=== PATIENT | female | born 1960 | race Caucasian/White ===

== ENCOUNTER 2017-04-09 18:10 | Inpatient (IN) | payer OTHER ==
[~2017-04-09] VITALS: Ht 165.1 cm; Wt 55.8 kg
[~2017-04-09 18:10] MED LIST: PROP10TA10 PO; SPIR50TA PO
[2017-04-09] MEDS ORDERED: ADENOSINE 6 MG/2 ML VIAL ONE (18:18)
--- NOTE | 2017-04-09 18:20 | NUR ---
PT BIBRA 88 FROM HOME C/O SOB AND DKEPNHPHUHT=[id number]. NOTED JAUNDICE. IV ACCESS INFILTRATED STAFF NURSE. MD AT BS FOR EVAL. SAFETY AND COMFORT MEASURES PROVIDED. WILL MONITOR.
[2017-04-09] MEDS ORDERED: DILTIAZEM HCL 25 MG IV ONE ×3 (18:31→21:04)
--- NOTE | 2017-04-09 18:35 | NUR ---
IV ACCESS STARTED. BLOOD DRAWN FOR LABS.
--- NOTE | 2017-04-09 18:40 | NUR ---
PT MEDICATED ORDERED. RT PRESENT AT BS. MD AT BS.
[2017-04-09 18:44] LABS: CALCIUM, SERUM 8.2 mg/dL (8.5-10.1); CREATININE 0.6 mg/dL (0.6-1.3); POTASSIUM 3.3 mmol/L (3.5-5.1)
[2017-04-09 18:56] LABS: ALBUMIN 2.1 g/dL (3.4-5.0); BILIRUBIN,DIRECT 7.6 mg/dL (0.0-0.2); BILIRUBIN,TOTAL 12.1 mg/dL (0.2-1.0); TOTAL PROTEIN, SERUM 7.2 g/dL (6.4-8.2)
[2017-04-09 18:57] LABS: TROPONIN I 0.057 ng/mL (0.00-0.056)
[2017-04-09] MEDS ORDERED: DILTIAZEM HCL 25 MG IV IV ONE ×2 (19:00→21:00)
[2017-04-09] MEDS ORDERED: ADENOSINE 6 MG/2 ML VIAL IVP ONE (19:00)
--- NOTE | 2017-04-09 19:00 | NUR ---
MADE AWARE OF CURRENT HEART RATE STILL AT 128-130S. RECEIOVED VERBAL ORDERS FROM DR. RICHARDSON FOR CARDIZEM 10MG SLOW IVP. ORDERS CARRIED OUT.
[2017-04-09 19:06] LABS: THYROID STIMULATING HORMONE 1.603 uIU/mL (0.358-3.74)
[2017-04-09 19:08] LABS: INR 2.01 (0.87-1.13)
[2017-04-09 19:36] LABS: BASOPHILS % (AUTO) 0.1 % (0.0-2.0); HEMATOCRIT 32 % (33-45); HEMOGLOBIN 11.1 g/dL (11.5-14.8); LYMPHOCYTES # (AUTO) 0.4 /CMM (0.8-4.8); LYMPHOCYTES % (AUTO) 9.6 % (20.0-44.0); MEAN CORPUSCULAR HEMOGLOBIN 38 PG (26.0-33.0); MEAN CORPUSCULAR HGB CONC 35 g/dl (31.0-36.0); MEAN CORPUSCULAR VOLUME 110 fL (82-100); MONOCYTES # (AUTO) 0.3 /CMM (0.1-1.30); NEUTROPHILS # (AUTO) 3.1 /CMM (1.8-8.9); NEUTROPHILS % (AUTO) 82.3 % (43.0-81.0); RDW COEFFICIENT OF VARIATION 14.2 (11.5-15.0); WHITE BLOOD COUNT (AUTO) 3.8 K/uL (4.3-11.0)
[2017-04-09 19:39] LABS: PLATELET COUNT (AUTO) 29 /CMM (150-450)
[2017-04-09 19:42] LABS: BAND % (MANUAL) 38 % (0.0-5.0); LYMPHOCYTES % (MANUAL) 14 % (16-48); METAMYELOCYTES % 1 % (0-0); MONOCYTES % (MANUAL) 14 % (0-11.0); MYELOCYTES % 3 % (0-0); NEUTROPHILS % (MANUAL) 30 (42-76)
--- NOTE | 2017-04-09 19:46 | NUR ---
UPDATED DR RICHARDSON REGARDING PATIENT'S HR 128-137, AFIB. BP OF 118/75. DR RICHARDSON REPLIED, "OKAY, I WILL ORDER MORE MEDICATIONS."
[2017-04-09] MEDS ORDERED: DIGOXIN INJ 0.5 MG/2 ML AMPUL ONE ×2 (20:28→20:49)
[2017-04-09] MEDS ORDERED: LEVOFLOXACIN 750 MG /D5W 150ML 150 ML IV ONE (20:28)
[2017-04-09] MEDS ORDERED: POTASSIUM CHLORIDE 20 MEQ TAB.PRT.SR PO ONE ×2 (20:28→20:30)
[2017-04-09] MEDS ORDERED: DIGOXIN INJ 0.5 MG/2 ML AMPUL IV ONE ×2 (20:30→21:00)
[2017-04-09] MEDS: LEVOFLOXACIN 750 MG /D5W 150ML 750 MG in PREMIX 1 EA IV SCH (20:40)
--- NOTE | 2017-04-09 20:55 | NUR ---
SECOND DOSE OF 0.25MG OF DIGOXIN GIVEN PER DR RICHARDSON'S VERBAL ORDER FOR AFIB RVR OF 143.
[2017-04-09] MEDS ORDERED: IPRATROPIUM NEB FS 0.5 MG/2.5 ML AMPUL.NEB NEB ONE (21:00)
[2017-04-09] MEDS ORDERED: methylPREDNISolone SOD SUCC 125 MG/2ML VIAL IV ONE (21:00)
[2017-04-09] MEDS ORDERED: ALBUTEROL FS 2.5 MG/3 ML VIAL.NEB NEB ONE (21:00)
[2017-04-09] MEDS ORDERED: methylPREDNISolone SOD SUCC 125 MG/2ML VIAL ONE (21:04)
[2017-04-09] MEDS ORDERED: ALBUTEROL FS 2.5 MG/3 ML VIAL.NEB ONE (21:18)
[2017-04-09] MEDS ORDERED: IPRATROPIUM NEB FS 0.5 MG/2.5 ML AMPUL.NEB ONE (21:18)
--- NOTE | 2017-04-09 21:24 | NUR ---
Report given to Jeremie FARR for izabela admission and chely.
--- NOTE | 2017-04-09 21:28 | NUR ---
ONGOING BREATHING TREAMENT BY RT.
[2017-04-09] MEDS ORDERED: ACETAMINOPHEN 325 MG TABLET PO PRN (21:30)
[2017-04-09] MEDS ORDERED: Z GUARD REMEDY 2 OZ OINT TP PRN (21:30)
[2017-04-09] MEDS ORDERED: MAG HYDROX/AL HYDROX/SIMETH 30 ML UDC PO PRN (21:30)
[2017-04-09] MEDS ORDERED: ONDANSETRON HCL/PF 4 MG/2 ML VIAL IVP PRN (21:30)
[2017-04-09] MEDS ORDERED: MAGNESIUM HYDROXIDE 30 ML UDC PO PRN (21:30)
[2017-04-09] MEDS ORDERED: HYDROCODONE/APAP 5/325MG 1 EACH TABLET PO PRN (21:30)
--- NOTE | 2017-04-09 21:30 | NUR ---
RN [facility] ADMITTING NOTE PT 56 YR OLD FROM ER, C/C SOB, TACHY CARDIA 114-120, TX IN ER , AOX4, ON 2L NC WELL LISA, DENIES ANY PAIN OR SOB, ADMITTED FOR NEW ON SET OF AFIB W/ RVR, UPON ARRIVING ON THE UNIT CONVERTED TO NSR 69. WITH LAC 18 G, PATENT WELL SECURED. DANN ADMITTING, ALL ORDERS ENTERED PER PROTOCOL, ASSESSMENT COMPLETE PHOTOS TAKEN AND FILED. SAFETY MEASURES IN PLACE, ALL NEEDS MET, WILL CONT TO MONITOR.
--- NOTE | 2017-04-09 21:31 | NUR ---
TRANSFERRED PATIENT TO [facility] BED VIA ALS PROTOCOL, NO INCIDENT NOTED.
[2017-04-09 23:30] VITALS: BP 142/72
[2017-04-09] MEDS: Magnesium 1GM/D5W 100ML PREMIX 100 ML IV SCH (23:30)
--- NOTE | 2017-04-09 23:36 | NUR ---
2300 1 BAG MAG WAS SCANNED BUT PT N/A ASSESSMENT FOR IV SITE HAD NOT BEEN ENTERED. TOTAL 3 BAGS [address].
[2017-04-10] VITALS: BP_SYST 119; BP_SYST 132; BP_DIAS 61; BP_DIAS 74
[2017-04-10] MEDS: Magnesium 1GM/D5W 100ML PREMIX 100 ML IV SCH ×2 (00:33→01:28)
[2017-04-10] MEDS: IV NS 0.9% 1,000 ML IV PRN ×2 (01:26→21:18)
[2017-04-10] MEDS: ZOLPIDEM TARTRATE 5 MG TABLET PO PRN ×2 (01:30→21:18)
[2017-04-10 04:00] VITALS: BP 128/59
--- NOTE | 2017-04-10 06:56 | NUR ---
[facility] RN CLOSING NOTES ENDORSED PT ASLEEP, NO DISTRESS OR C/O OF PAIN, IV FLUIDS CONT ORDERED, PT REQUESTING FOR FLU AND PNA SHOT, WILL ENDORSE TO AM SHIFT NURSE TO F/U.
--- NOTE | 2017-04-10 07:30 | NUR ---
[facility] RN INITIAL NOTES RECEIVED PATIENT IN BED, AOX3, ON 2L NC, SATURATING WELL, NO CO OF PAIN, ON TELE MONITOR SR 91 HR, IV LAC 18G NS @75ML/HR, IN DIAPER DUE TO WEAKNESS, NON PRODUCTIVE COUGH NOTED, BED IN LOW AND LOCKED POSITION CALL LIGHT WITHIN REACH, WILL CONTINUE TO MONITOR.
[2017-04-10 08:00] VITALS: BP 119/74
[2017-04-10 08:22] LABS: BASOPHILS % (AUTO) 0.8 % (0.0-2.0); EOSINOPHILS % (AUTO) 0.1 % (0.0-6.0); HEMATOCRIT 27 % (33-45); HEMOGLOBIN 9.4 g/dL (11.5-14.8); LYMPHOCYTES # (AUTO) 0.3 /CMM (0.8-4.8); MEAN CORPUSCULAR HEMOGLOBIN 39 PG (26.0-33.0); MEAN CORPUSCULAR HGB CONC 35 g/dl (31.0-36.0); MEAN CORPUSCULAR VOLUME 112 fL (82-100); MONOCYTES # (AUTO) 0.3 /CMM (0.1-1.30); MONOCYTES % (AUTO) 8.4 % (2.0-12.0); NEUTROPHILS # (AUTO) 3.4 /CMM (1.8-8.9); NEUTROPHILS % (AUTO) 83.7 % (43.0-81.0); RDW COEFFICIENT OF VARIATION 14.9 (11.5-15.0); RED BLOOD CELL COUNT(AUTO) 2.39 MIL/uL (4.0-5.2); WHITE BLOOD COUNT (AUTO) 4.1 K/uL (4.3-11.0)
[2017-04-10 08:44] LABS: PLATELET COUNT (AUTO) 20 /CMM (150-450)
[2017-04-10 08:56] LABS: CALCIUM, SERUM 7.5 mg/dL (8.5-10.1); CREATININE 0.6 mg/dL (0.6-1.3); MAGNESIUM 1.9 mg/dL (1.8-2.4); PHOSPHORUS 1.7 mg/dL (2.5-4.9); POTASSIUM 3.8 mmol/L (3.5-5.1)
[2017-04-10] MEDS ORDERED: THIAMINE HCL 100 MG TABLET PO SCH (09:00)
[2017-04-10] MEDS: SPIRONOLACTONE 25 MG TABLET PO SCH (09:23)
[2017-04-10] MEDS: PROPRANOLOL HCL 10 MG TABLET PO SCH ×2 (09:24→17:50)
[2017-04-10 10:09] LABS: BAND % (MANUAL) 1 % (0.0-5.0); LYMPHOCYTES % (MANUAL) 9 % (16-48); MONOCYTES % (MANUAL) 7 % (0-11.0); NEUTROPHILS % (MANUAL) 83 (42-76)
[2017-04-10] MEDS: NEUTRA PHOS 1 POWD.PACKET PO SCH ×2 (10:13→17:50)
[2017-04-10 12:00] VITALS: BP 110/57
[2017-04-10 16:00] VITALS: BP 128/61
--- NOTE | 2017-04-10 19:42 | NUR ---
[facility] RN NOTES PATIENT RESTING IN BED, WITH EPISODES OF CONFUSION, REORIENTED TO UNIT, WILL ENDORSE TO AGRONOMY SPECIALIST FOR CONTINUITY OF CARE.
[2017-04-10 20:00] VITALS: BP 140/80
--- NOTE | 2017-04-10 20:00 | NUR ---
[facility] RN INITIAL NOTES RECEIVED PATIENT IN BED, AOX2 W/ CONFUSION, AMONIA LEVEL ELEVATED, WITH ORDER FOR LACTULOSE GIVEN ORDERED. ON 2L NC, SATURATING WELL, NO CO OF PAIN, ON TELE MONITOR SR 93 HR, IV LINE PULLED OUT, NEW 22 G ON RH, NS @75ML/HR, IN DIAPER DUE TO WEAKNESS, NON PRODUCTIVE COUGH NOTED, BED IN LOW AND LOCKED POSITION W/ BED ARLAM ON .CALL LIGHT WITHIN REACH, WILL CONTINUE TO MONITOR.
[2017-04-10] MEDS: LEVOFLOXACIN 750 MG /D5W 150ML 750 MG in PREMIX 1 EA IV SCH (21:17)
[2017-04-10] MEDS: PANTOPRAZOLE 40 MG VIAL IV SCH (21:17)
[2017-04-10] MEDS: LACTULOSE 10 G/15 ML UDC (PYXIS) PO PRN (21:17)
[2017-04-10] MEDS ORDERED: PHYTONADIONE INJ 10 MG/1 ML AMPUL SQ ONE (22:00)
--- NOTE | 2017-04-10 22:00 | NUR ---
PT SEEN BY DR TEJADA, ASSESSED PT, NOTED PT WAS SHAKING, BASED ON THE SERUM ALCOHOL LEVEL OF 11, REQUESTED TO NOTIFY PRIMARY FOR VALIUM ORDER. CALLED PARTS COUNTER ASSOCIATE DANN WHO HAPPEN TO HAVE ADMITTED THE PT TO RELAY CONCERN OF DR TEJADA REQUESTING FOR VALIUM. SHE INSTEAD ORDERED ATIVAN 2MG PO PRN X1 DOSE. ORDER CARRIED OUT, ENDORSED TO AM CHARGE NURSE TO F/U WITH PRIMARY IF NECESSARY TO ORDER VALIUM FOR S/S OF WITHDRAW.
[2017-04-10] MEDS ORDERED: METRONIDAZOLE 500MG/ NS 100ML 100 ML IV ONE (22:25)
[2017-04-10] MEDS ORDERED: METRONIDAZOLE 500MG/ NS 100ML 500 MG in PREMIX 1 EA IV ONE (22:30)
[2017-04-10] MEDS ORDERED: LORAZEPAM 1 MG TABLET PO PRN (22:30)
--- NOTE | 2017-04-10 22:55 | NUR ---
2100 DR TEJADA ORDERED THIAMINE 100 MG PO @ 2100 AND 9 AM, TOOOK OUT THE MEDICATION AND OPENED IT THEN A FEW MINUTES LATER SHE CHANGED THE ORER TO 9AM. MEDICATION WASTED.
[2017-04-11] VITALS: BP 139/80
[2017-04-11 04:00] VITALS: BP 137/85
[2017-04-11] MEDS ORDERED: METRONIDAZOLE 500MG/ NS 100ML 100 ML IV ONE (04:11)
[2017-04-11] MEDS: METRONIDAZOLE 500MG/ NS 100ML 500 MG in PREMIX 1 EA IV SCH ×3 (04:12→20:52)
[2017-04-11] MEDS: LACTULOSE 10 G/15 ML UDC (PYXIS) PO PRN (04:18)
--- NOTE | 2017-04-11 06:16 | NUR ---
RN [facility] CLOSING NOTE ENDORSED PT AWAKE, CONFUSED, AMONIA LEVEL 47, LACTULOSE PRN Q6 GIVEN X2, STILL NO BM, UA W/ CX COLLECTED, NOT ABLE TO COLLECT STOOL, WILL ENDORSE TO AM SHIFT NURSE TO F/U ON POSSIBLE PLT TRANSFUSION TODAY, ORDER SEEN IN AM PT NPO SINCE MID NIGHT FOR POSSIBLE US FOR ABD.
--- NOTE | 2017-04-11 07:10 | NUR ---
RN NOTES RECEIVED PATIENT ON BED, A/Ox1, CONFUSED , RESTLESS , SITTER AT THE BEDSIDE FOR SAFETY PRECAUTIONS, ON 2L O2 N/C, NO SOB NOTED, ON TELE NSR , HR IN 90'S , R HAND IV SITE G 22 CDI, WITH NS AT 75CC/HR RUNNING , BED LOCKED AND IN LOWEST POSITION ,SR UP x3, BED ALARM ON, CALL LIGHT WITHIN EASY REACH, WILL CONTINUE TO MONITOR PT CLSOELY .
[2017-04-11 07:28] LABS: HEMATOCRIT 31 % (33-45); HEMOGLOBIN 10.6 g/dL (11.5-14.8); LYMPHOCYTES # (AUTO) 0.3 /CMM (0.8-4.8); LYMPHOCYTES % (AUTO) 2.1 % (20.0-44.0); MEAN CORPUSCULAR HEMOGLOBIN 39 PG (26.0-33.0); MEAN CORPUSCULAR HGB CONC 35 g/dl (31.0-36.0); MEAN CORPUSCULAR VOLUME 113 fL (82-100); MONOCYTES % (AUTO) 7.9 % (2.0-12.0); NEUTROPHILS # (AUTO) 11.2 /CMM (1.8-8.9); RDW COEFFICIENT OF VARIATION 14.4 (11.5-15.0); WHITE BLOOD COUNT (AUTO) 12.4 K/uL (4.3-11.0)
--- NOTE | 2017-04-11 07:30 | NUR ---
RECEIVED PT. IN BED. NO C/O PAIN,NO S/S OF DISTRESS BREATHING EVEN AND UNLABORED.WILL CONTINUE TO MONITOR FOR CHANGES.SAFETY MEASURES IN PLACE. I.V CDI AND PATENT.
[2017-04-11 07:32] LABS: ALBUMIN 1.8 g/dL (3.4-5.0); CALCIUM, SERUM 7.8 mg/dL (8.5-10.1); CREATININE 0.6 mg/dL (0.6-1.3); MAGNESIUM 1.6 mg/dL (1.8-2.4); PHOSPHORUS 2.2 mg/dL (2.5-4.9); POTASSIUM 3.8 mmol/L (3.5-5.1); TOTAL PROTEIN, SERUM 6.4 g/dL (6.4-8.2)
[2017-04-11 07:33] LABS: BILIRUBIN,TOTAL 14.7 mg/dL (0.2-1.0)
[2017-04-11 07:46] LABS: PLATELET COUNT (AUTO) 39 /CMM (150-450)
[2017-04-11 08:00] VITALS: BP 128/68
[2017-04-11 08:00] LABS: IRON, SERUM 164 ug/dl (50-175); TOTAL IRON BINDING CAPACITY 199 ug/dl (250-450)
[2017-04-11 08:27] LABS: APPEARANCE,URINE CLOUDY (CLEAR); BILIRUBIN,URINE 3+ (NEGATIVE); BLOOD, URINE 3+ Ery/uL (NEGATIVE); COLOR,URINE DARK YELLO (YELLOW); KETONES,URINE NEGATIVE (NEGATIVE); LEUKOCYTE ESTERASE ,URINE NEGATIVE (NEGATIVE); NITRITE, URINE POSITIVE (NEGATIVE); PH,URINE 6.5 (5.0-8.0); PROTEIN,URINE 1+ mg/dl (NEGATIVE); UGLUCOSE TRACE mg/dL (NEGATIVE)
[2017-04-11 09:22] LABS: INR 2.86 (0.87-1.13)
[2017-04-11 09:23] LABS: D-DIMER 13.44 mg/L(FEU (0.17-0.50)
[2017-04-11 09:29] LABS: WBC,URINE 0-2 /HPF (0-3)
[2017-04-11 09:30] LABS: BACTERIA,URINE 2+ /HPF (None Seen); SQUAMOUS EPITHELIAL CELL,UR Few /HPF (None Seen)
[2017-04-11] MEDS: Magnesium 1GM/D5W 100ML PREMIX 100 ML IV SCH ×2 (09:37→10:56)
[2017-04-11] MEDS: NEUTRA PHOS 1 POWD.PACKET PO SCH ×2 (09:38→17:35)
[2017-04-11] MEDS: FOLIC ACID 1 MG TABLET PO SCH (09:38)
[2017-04-11] MEDS: SPIRONOLACTONE 25 MG TABLET PO SCH (09:38)
[2017-04-11] MEDS: THIAMINE HCL 100 MG TABLET PO SCH (09:38)
[2017-04-11] MEDS: PROPRANOLOL HCL 10 MG TABLET PO SCH ×2 (09:39→16:16)
[2017-04-11 09:51] LABS: BAND % (MANUAL) 1 % (0.0-5.0); LYMPHOCYTES % (MANUAL) 2 % (16-48); MONOCYTES % (MANUAL) 9 % (0-11.0); NEUTROPHILS % (MANUAL) 88 (42-76)
[2017-04-11 11:42] LABS: FERRITIN 231 ng/mL (8-388)
[2017-04-11 12:00] VITALS: BP 128/68
--- NOTE | 2017-04-11 12:00 | NUR ---
RN NOTES REPORT GIVEN TO NADIA FARR FOR KOSTA .
[2017-04-11 16:00] VITALS: BP 127/61
--- NOTE | 2017-04-11 16:06 | NUR ---
RN NOTES RECEIVED PT FROM YORDAN DAWSON. PT RESTING IN BED WITH SITTER AT BEDSIDE. LH IV SITE INTACT NO IVF. BED LOCKED AND IN LOWEST POSITION, WILL CONT TO ZHEN.
[2017-04-11 18:09] LABS: OCCULT BLOOD STOOL POSITIVE (NEGATIVE)
[2017-04-11] MEDS: PANTOPRAZOLE 40 MG VIAL IV SCH (18:39)
[2017-04-11 20:00] VITALS: BP 97/57
--- NOTE | 2017-04-11 20:00 | NUR ---
RN INITIAL NOTES RECEIVED PATIENT ON BED, A/Ox1, CONFUSED , RESTLESS , SITTER AT THE BEDSIDE FOR SAFETY PRECAUTIONS, ON 2L O2 N/C, R HAND IV SITE G 22 CDI, BED LOCKED AND IN LOWEST POSITION ,SR UP x3, BED ALARM ON, CALL LIGHT WITHIN EASY REACH, WILL CONTINUE TO MONITOR PT CLOSELY .
[2017-04-12] VITALS: BP 141/88
[2017-04-12 03:00] VITALS: BP 128/61
[2017-04-12 04:00] VITALS: BP 128/61
[2017-04-12] MEDS: METRONIDAZOLE 500MG/ NS 100ML 500 MG in PREMIX 1 EA IV SCH ×3 (04:42→20:42)
--- NOTE | 2017-04-12 06:58 | NUR ---
YORDAN INITIAL NOTES PATIENT ON BED ASLEEP, A/Ox1, CONFUSED , RESTLESS , PT TRIED TO GET OUT OF BED SEVERAL TIMES OVERNIGHT, BED ALARM ON FOR SAFETY. ON 2L O2 N/C, R HAND IV SITE G 22 CDI, BED LOCKED IN LOWEST POSITION ,SR UP x3, BED ALARM ON, CALL LIGHT WITHIN EASY REACH, WILL ENDORSE TO AM YORDAN. Addendum: 04/12/17 at 0712 by KIRSTY GUSTAFSON RN RN CLOSING NOTES
--- NOTE | 2017-04-12 07:10 | NUR ---
MS RN OPENING NOTES. PT RECEIVED A&0X2, CONFUSED, VERY SLEEPY. PT WITH 02 VIA NC AT 3LPM, RESP SHALLOW BUT REGULAR. PT REPORTING NO PAIN. PT WITH IVC AT R HAND WITH NS TKO. PT BED IN LOWEST LOCKED POSITION WITH HANDRAILSX3 AND BED ALARM ON. PT BRIEFED ON TODAY'S POC, WILL REORIENTATE NEEDED.
[2017-04-12] MEDS: SPIRONOLACTONE 25 MG TABLET PO SCH (09:05)
[2017-04-12] MEDS: FOLIC ACID 1 MG TABLET PO SCH (09:05)
[2017-04-12] MEDS: PROPRANOLOL HCL 10 MG TABLET PO SCH ×2 (09:06→17:00)
[2017-04-12] MEDS: THIAMINE HCL 100 MG TABLET PO SCH (09:06)
[2017-04-12 10:00] VITALS: BP 113/52
[2017-04-12 11:00] VITALS: BP 113/52
[2017-04-12 19:01] VITALS: BP 95/46
[2017-04-12] MEDS: PANTOPRAZOLE 40 MG VIAL IV SCH (19:12)
--- NOTE | 2017-04-12 19:30 | NUR ---
MS RN INITIAL NOTE PT RECEIVED LETHARGIC AND WITH NOTED CONFUSION BUT EASILY AROUSABLE TO NAME AND TOUCH. A/O X1 AND ABLE TO VERBALIZED SOME NEEDS. ON 2L OF O2 VIA NC AND SATURATING WELL. BREATHING EVEN AND UNLABORED. IV R HAND #22 CLEAN, DRY, PATENT AND FLUSHING WELL. HOB ELEVATED. NO C/O PAIN OR DISCOMFORT NOTED. CALL LIGHT WITHIN REACH. WILL CONTINUE TO MONITOR.
--- NOTE | 2017-04-12 19:32 | NUR ---
MS RN CLOSING NOTES. PT A&0X2, CONFUSED, AROUSABLE TO NAME BUT VERY SLEEPY. PT WITH 02 VIA NC AT 2LPM REPS REGULAR. PT REPORTING NO PAIN. PT WITH IVC AT R HAND WITH NS TKO. PT BED IN LOWEST LOCKED POSITION WITH HANDRAILSX3 AND BED ALARM ON. PT BRIEFED ON TODAY'S POC, WILL REORIENTATE NEEDED. Addendum: 04/12/17 at 1934 by RADHAMES HADDAD RN FAMILY BRIEFED ON TODAY'S POC AND WILL PRESENT TOMORROW TO FOLLOW UP WITH CM AND SS. ALL DAY NURSE DUTIES ATTENDED TO. WILL ENDORSE TO NIGHT NURSE.
[2017-04-13] MEDS ORDERED: LEVOFLOXACIN 750 MG /D5W 150ML 150 ML IV ONE (00:37)
[2017-04-13] MEDS: LEVOFLOXACIN 750 MG /D5W 150ML 750 MG in PREMIX 1 EA IV SCH ×2 (00:43→23:38)
[2017-04-13 04:00] VITALS: BP 92/43
[2017-04-13] MEDS: METRONIDAZOLE 500MG/ NS 100ML 500 MG in PREMIX 1 EA IV SCH ×3 (05:06→21:38)
--- NOTE | 2017-04-13 07:23 | NUR ---
MS RN CLOSING NOTE PT REMAINED STABLE DURING SHIFT. NO ACUTE DISTRESS NOTED. ALL NEEDS ATTENDED TO PROMPTLY. KEPT CLEAN AND DRY. REPOSITIONED Q2H. CALL LIGHT WITHIN REACH. WILL ENDORSE TO NEXT SHIFT FOR CONTINUITY OF CARE.
--- NOTE | 2017-04-13 07:30 | NUR ---
SCHEDULE MANAGER INITIAL NOTES RECEIVED PATIENT IN BED, AOX2, PERIODS OF CONFUSION AND FORGETFUL, ON 2L NC, NO DISTRESS NOTED, IV L HAND 22G CLEAN AND PATENT, IN DIAPER, NEEDS ASSISTANCE WITH TURNING AND EATING DUE TO WEAKNESS, BED IN LOW AND LOCKED POSITION CALL LIGHT WITHIN REACH, WILL CONTINUE TO MONITOR.
[2017-04-13 08:00] VITALS: BP 97/53
[2017-04-13 08:02] LABS: BASOPHILS # (AUTO) 0.1 /CMM (0.0-0.2); BASOPHILS % (AUTO) 0.8 % (0.0-2.0); EOSINOPHILS % (AUTO) 0.5 % (0.0-6.0); HEMATOCRIT 27 % (33-45); HEMOGLOBIN 9.4 g/dL (11.5-14.8); LYMPHOCYTES # (AUTO) 0.5 /CMM (0.8-4.8); LYMPHOCYTES % (AUTO) 6.5 % (20.0-44.0); MEAN CORPUSCULAR HEMOGLOBIN 41 PG (26.0-33.0); MEAN CORPUSCULAR HGB CONC 35 g/dl (31.0-36.0); MEAN CORPUSCULAR VOLUME 116 fL (82-100); MONOCYTES # (AUTO) 0.5 /CMM (0.1-1.30); MONOCYTES % (AUTO) 6.8 % (2.0-12.0); NEUTROPHILS # (AUTO) 6.3 /CMM (1.8-8.9); NEUTROPHILS % (AUTO) 85.4 % (43.0-81.0); RDW COEFFICIENT OF VARIATION 15.5 (11.5-15.0); RED BLOOD CELL COUNT(AUTO) 2.32 MIL/uL (4.0-5.2); WHITE BLOOD COUNT (AUTO) 7.4 K/uL (4.3-11.0)
[2017-04-13 08:05] LABS: PLATELET COUNT (AUTO) 27 /CMM (150-450)
[2017-04-13 08:08] LABS: BILIRUBIN,TOTAL 11.5 mg/dL (0.2-1.0); CALCIUM, SERUM 7.3 mg/dL (8.5-10.1); CREATININE 0.5 mg/dL (0.6-1.3); MAGNESIUM 1.6 mg/dL (1.8-2.4); PHOSPHORUS 2.1 mg/dL (2.5-4.9); TOTAL PROTEIN, SERUM 4.8 g/dL (6.4-8.2)
--- NOTE | 2017-04-13 08:30 | NUR ---
PAINT SPRAYER SANDBLASTER NOTES CRITICAL PLT 27 ASSOCIATE PROGRAMMER LEN MADE AWARE. WILL CONTINUE TO MONITOR
[2017-04-13] MEDS: SPIRONOLACTONE 25 MG TABLET PO SCH (08:50)
[2017-04-13] MEDS: FOLIC ACID 1 MG TABLET PO SCH (08:50)
[2017-04-13] MEDS: THIAMINE HCL 100 MG TABLET PO SCH (08:50)
[2017-04-13] MEDS: PROPRANOLOL HCL 10 MG TABLET PO SCH ×2 (08:51→17:36)
[2017-04-13] MEDS: LACTULOSE 10 G/15 ML UDC (PYXIS) PO PRN (08:51)
[2017-04-13 08:54] LABS: ALBUMIN 1.1 g/dL (3.4-5.0)
[2017-04-13] MEDS: Magnesium 1GM/D5W 100ML PREMIX 100 ML IV SCH ×2 (09:53→11:02)
[2017-04-13] MEDS: POTASSIUM CHLORIDE 20 MEQ TAB.PRT.SR PO SCH ×3 (09:54→13:15)
[2017-04-13 10:56] LABS: BAND % (MANUAL) 1 % (0.0-5.0); LYMPHOCYTES % (MANUAL) 3 % (16-48); MONOCYTES % (MANUAL) 9 % (0-11.0); NEUTROPHILS % (MANUAL) 87 (42-76)
[2017-04-13] MEDS ORDERED: NEUTRA PHOS 1 POWD.PACKET NG ONE (11:30)
[2017-04-13 16:00] VITALS: BP 152/74
--- NOTE | 2017-04-13 19:02 | NUR ---
MARKING STITCHER NOTES PATIENT RESTING IN BED, NO SIGNS OF DISTRESS, FRIENDS AT BEDSIDE, PATIENT CLEANED AND MADE COMFORTABLE, WILL ENDORSE TO LIVESTOCK NUTRITIONIST FOR CONTINUITY OF CARE.
--- NOTE | 2017-04-13 19:20 | NUR ---
RN INITIAL NOTE RECEIVED PT IN NO ACUTE DISTRESS IN BED. PT IS A/O X 1 WITH CONFUSION. PT IS ON O2 VIA NC @ 2LPM AND TOLERATING WELL WITH O2 SAT @ 96%. PT IS NOT C/O ANY SOB ,DIFFICULTY BREATHING OR PAIN AT THIS TIME. PT HAS LHAND 22G THAT IS CLEAN DRY INTACT AND PATENT WITH SALINE FLUSH. BED IN LOW LOCK POSITION WITH RAILS UP X 2. ALL SAFETY MEASURES ENSURED AND CARRIED OUT. WILL CONTINUE TO MONITOR PT.
[2017-04-13] MEDS: PANTOPRAZOLE 40 MG VIAL IV SCH (19:37)
[2017-04-13 20:00] VITALS: BP 135/78
[2017-04-14] VITALS: BP 100/48
[2017-04-14 04:00] VITALS: BP 96/53
[2017-04-14] MEDS: METRONIDAZOLE 500MG/ NS 100ML 500 MG in PREMIX 1 EA IV SCH (05:07)
--- NOTE | 2017-04-14 06:29 | NUR ---
RN CLOSING NOTE PT REMAINS IN NO ACUTE DISTRESS IN BED. PT DID NOT HAVE ANY SIGNIFICANT CHANGE IN CONDITION DURING SHIFT. ALL NEEDS MET, ALL ORDERS CARRIED OUT. WILL ENDORSE CARE TO AM RN FOR CONTINUITY OF CARE.
[2017-04-14 08:00] VITALS: BP 89/39
[2017-04-14 08:05] LABS: BASOPHILS % (AUTO) 0.2 % (0.0-2.0); EOSINOPHILS # (AUTO) 0.1 /CMM (0.0-0.7); EOSINOPHILS % (AUTO) 0.7 % (0.0-6.0); HEMATOCRIT 27 % (33-45); HEMOGLOBIN 9.7 g/dL (11.5-14.8); LYMPHOCYTES # (AUTO) 0.5 /CMM (0.8-4.8); LYMPHOCYTES % (AUTO) 5.2 % (20.0-44.0); MEAN CORPUSCULAR HEMOGLOBIN 43 PG (26.0-33.0); MEAN CORPUSCULAR HGB CONC 36 g/dl (31.0-36.0); MEAN CORPUSCULAR VOLUME 118 fL (82-100); MONOCYTES # (AUTO) 0.8 /CMM (0.1-1.30); MONOCYTES % (AUTO) 8.7 % (2.0-12.0); NEUTROPHILS # (AUTO) 7.6 /CMM (1.8-8.9); NEUTROPHILS % (AUTO) 85.2 % (43.0-81.0); RDW COEFFICIENT OF VARIATION 15.2 (11.5-15.0); RED BLOOD CELL COUNT(AUTO) 2.27 MIL/uL (4.0-5.2)
[2017-04-14] MEDS: FOLIC ACID 1 MG TABLET PO SCH (08:08)
[2017-04-14] MEDS: THIAMINE HCL 100 MG TABLET PO SCH (08:08)
[2017-04-14 08:09] LABS: CALCIUM, SERUM 7.3 mg/dL (8.5-10.1); CREATININE 0.6 mg/dL (0.6-1.3); POTASSIUM 3.4 mmol/L (3.5-5.1)
[2017-04-14] MEDS: SPIRONOLACTONE 25 MG TABLET PO SCH (08:09)
[2017-04-14] MEDS: PROPRANOLOL HCL 10 MG TABLET PO SCH (08:09)
[2017-04-14 08:15] LABS: INR 2.69 (0.85-1.15)
[2017-04-14 08:32] LABS: PLATELET COUNT (AUTO) 30 /CMM (150-450)
[2017-04-14 09:53] LABS: BAND % (MANUAL) 5 % (0.0-5.0); EOSINOPHILS % (MANUAL) 2 % (0-4); LYMPHOCYTES % (MANUAL) 4 % (16-48); MONOCYTES % (MANUAL) 7 % (0-11.0); NEUTROPHILS % (MANUAL) 82 (42-76)
[2017-04-14] MEDS ORDERED: POTASSIUM CHLORIDE 20 MEQ TAB.PRT.SR PO SCH (11:00)
[2017-04-14] MEDS ORDERED: METRONIDAZOLE 500 MG TABLET PO SCH (13:00)
[2017-04-14 16:00] VITALS: BP 96/58
[2017-04-14] MEDS ORDERED: NEUTRA PHOS 1 POWD.PACKET PO ONE (16:30)
--- NOTE | 2017-04-14 17:10 | NUR ---
MED SURG DISCHARGE NOTE PT DC TO CHOICE TRANSITIONAL [facility]ARE. PT LEFT VIA AMBULANCE. DC INSTRUCTIONS GIVEN TO EMT. REMOVED IV AND ID BAND. BELONGINGS TAKEN WITH PT. FRIENDS @ BEDSIDE. PT CLEAN AND DRY. PHOTOS TAKEN AND PUT IN CHART. ALL ORDER CARRIED OUT. PT STABLE V/S WNL OF PT BASELINE. PT UNABLE TO SIGN DC PAPERWORK. COSIGNED WITH LAITH. RX GIVEN TO PATIENT. TOLD BY LAITH FARRVENTILATED RIB FITTER NO NEED FOR REPORT TO BE CALLED.
[2017-04-15] MEDS ORDERED: LEVOFLOXACIN (750 MG) 750 MG TABLET PO SCH
== END 2017-04-14 17:35 | disposition home or self-care (01) | DRG 720 ==
LOC: ER 18:11 → TELE-TD 20:55 → TELE1 04-11 07:39 → MEDSG1 04-11 09:33 → UNDODISIN 04-11 18:16
PROVIDERS: ADMIT Nurse Practitioner Acute Care; ATTEND Nurse Practitioner Acute Care
DX: A41.9 Sepsis, unspecified organism (principal); I21.A1 Myocardial infarction type 2; E43 Unspecified severe protein-calorie malnutrition; D61.818 Other pancytopenia; E72.20 Disorder of urea cycle metabolism, unspecified; D68.8 Other specified coagulation defects; I85.10 Secondary esophageal varices without bleeding; K76.6 Portal hypertension; E87.1 Hypo-osmolality and hyponatremia; E83.42 Hypomagnesemia; K70.30 Alcoholic cirrhosis of liver without ascites; E44.0 Moderate protein-calorie malnutrition; I48.91 Unspecified atrial fibrillation; E87.6 Hypokalemia; J06.9 Acute upper respiratory infection, unspecified; D53.9 Nutritional anemia, unspecified; D73.1 Hypersplenism; E53.8 Deficiency of other specified B group vitamins; E83.39 Other disorders of phosphorus metabolism; Z87.891 Personal history of nicotine dependence; D69.59 Other secondary thrombocytopenia; E88.09 Other disorders of plasma-protein metabolism, not elsewhere classified; T51.0X1A Toxic effect of ethanol, accidental (unintentional), initial encounter; K70.40 Alcoholic hepatic failure without coma; Y90.0 Blood alcohol level of less than 20 mg/100 ml; J44.9 Chronic obstructive pulmonary disease, unspecified; Z68.20 Body mass index [BMI] 20.0-20.9, adult; K31.89 Other diseases of stomach and duodenum; K44.9 Diaphragmatic hernia without obstruction or gangrene; K70.10 Alcoholic hepatitis without ascites; Z91.19 Patient's noncompliance with other medical treatment and regimen; K80.20 Calculus of gallbladder without cholecystitis without obstruction; K92.2 Gastrointestinal hemorrhage, unspecified; F10.239 Alcohol dependence with withdrawal, unspecified; I50.9 Heart failure, unspecified
CPT/HCPCS: 36415; 71045-TC; 76700-TC; 80048-TC; 80053-TC; 80061-TC; 80076-TC; 81000-TC; 82140-TC; 82272-TC; 82728-TC; 82746; 83540-TC; 83735-TC; 83880; 84100-TC; 84443-TC; 84484-TC; 85025-TC; 85396; 85610-TC; 85730-TC; 87040-TC; 87081-TC; 87086-TC; 93307-TC; 97116-TC; 97530-TC; A4216; A4606; C9113; G0480; J0153; J1160; J1956; J2930; J3430; J3475; J3490; J7030; Z7610

== ENCOUNTER 2019-03-30 11:08 | Inpatient (IN) | payer OTHER ==
[2019-03-30] VITALS (19 sets, daily range): BP systolic 67–138; BP diastolic 33–86
[~2019-03-30] VITALS: Ht 165.1 cm; Wt 61.2 kg
--- NOTE | 2019-03-30 11:10 | NUR ---
BIBRA FROM HOME C/O GEN WEAKNESS AND LOW BP, PT IS AAOX3, NOT IN RESPIRATORY DISTRESS, HOOKED TO MONITOR, KEPT RESTED AND COMFORTABLE, WILL CONTINUE TO MONITOR.
--- NOTE | 2019-03-30 11:16 | NUR ---
AT BEDSIDE FOR EVAL.
[2019-03-30] MEDS ORDERED: ACETAMINOPHEN 325 MG TABLET ONE (11:24)
[2019-03-30] MEDS ORDERED: ACETAMINOPHEN 325 MG TABLET PO ONE (11:30)
[2019-03-30] MEDS ORDERED: VANCOMYCIN 1 GM in IV D5W 250 ML IV ONE (11:30)
[2019-03-30] MEDS ORDERED: IV NS 0.9% 1,000 ML BAG IV ONE (11:30)
[2019-03-30] MEDS ORDERED: PIPERACILLIN /TAZOBACTAM 3.375 G in IV D5W 50 ML IV ONE (11:30)
--- NOTE | 2019-03-30 11:30 | NUR ---
ER PHLEB AT BEDSIDE FOR BLOOD DRAW.
--- NOTE | 2019-03-30 11:39 | NUR ---
URINE SPECIMEN COLLECTED AND SENT TO LAB.
[2019-03-30 11:40] LABS: BASOPHILS % (AUTO) 0.5 % (0.0-2.0); EOSINOPHILS % (AUTO) 0.1 % (0.0-6.0); HEMATOCRIT 36 % (33-45); HEMOGLOBIN 12.2 g/dL (11.5-14.8); LYMPHOCYTES # (AUTO) 0.3 /CMM (0.8-4.8); LYMPHOCYTES % (AUTO) 7.8 % (20.0-44.0); MEAN CORPUSCULAR HGB CONC 34 g/dl (31.0-36.0); MEAN CORPUSCULAR VOLUME 118 fL (82-100); MONOCYTES # (AUTO) 0.6 /CMM (0.1-1.30); MONOCYTES % (AUTO) 13.7 % (2.0-12.0); NEUTROPHILS # (AUTO) 3.3 /CMM (1.8-8.9); NEUTROPHILS % (AUTO) 77.9 % (43.0-81.0); RED BLOOD CELL COUNT(AUTO) 3.04 MIL/uL (4.0-5.2); WHITE BLOOD COUNT (AUTO) 4.2 K/uL (4.3-11.0)
[2019-03-30] MEDS ORDERED: CITA20TA16 PO (11:43)
[2019-03-30] MEDS ORDERED: BUPR75TA8 PO (11:43)
[2019-03-30] MEDS ORDERED: CHOL500052 PO (11:43)
[2019-03-30] MEDS ORDERED: POTA10CA43 PO (11:43)
[2019-03-30] MEDS ORDERED: LACT10SO PO (11:43)
[2019-03-30] MEDS ORDERED: HYDR10SY16 PO (11:43)
[2019-03-30 11:44] LABS: BILIRUBIN,URINE LARGE (NEGATIVE); BLOOD, URINE Large Ery/uL (NEGATIVE); KETONES,URINE Trace (NEGATIVE); LEUKOCYTE ESTERASE ,URINE Small (NEGATIVE); NITRITE, URINE Negative (NEGATIVE); PROTEIN,URINE 100 mg/dl (NEGATIVE); UGLUCOSE 100 MG/DL mg/dL (NEGATIVE); UROBILINOGEN,URINE >=8.0 EU/dL (0.2)
[2019-03-30 11:45] LABS: PLATELET COUNT (AUTO) 24 /CMM (150-450)
--- NOTE | 2019-03-30 11:45 | NUR ---
PLT 24K
[2019-03-30 11:46] LABS: APPEARANCE,URINE CLOUDY (CLEAR); COLOR,URINE RED (YELLOW)
--- NOTE | 2019-03-30 11:46 | NUR ---
SENIOR CLIMATE ADVISOR AT BEDSIDE FOR XRAY.
[2019-03-30 11:47] LABS: CALCIUM, SERUM 7.7 mg/dL (8.5-10.1); CARBON DIOXIDE 14 mmol/L (21-32); CHLORIDE 98 mmol/L (98-107); GLUCOSE 66 mg/dL (74-106); POTASSIUM 3.4 mmol/L (3.5-5.1); SODIUM SERUM 133 mmol/L (136-145); UREA NITROGEN, BLOOD 8 mg/dL (7-18)
[2019-03-30 11:53] LABS: ALANINE AMINOTRANSFERASE 22 U/L (12-78); ALBUMIN 1.9 g/dL (3.4-5.0); ALKALINE PHOSPHATASE 195 U/L (46-116); ASPARTATE AMINOTRANSFERASE 80 U/L (15-37); BILIRUBIN,DIRECT 10.6 mg/dL (0.0-0.2); BILIRUBIN,TOTAL 15.1 mg/dL (0.2-1.0)
[2019-03-30 11:54] LABS: RBC,URINE TOO NUMEROUS TO COUN /HPF (0-2)
[2019-03-30 11:55] LABS: BACTERIA,URINE Moderate /HPF (None Seen); SQUAMOUS EPITHELIAL CELL,UR Few /HPF (None Seen); URINE AMORPHOUS PHOSPHATES Moderate /HPF (None Seen)
[2019-03-30] MEDS ORDERED: ONDANSETRON HCL/PF 4 MG/2 ML VIAL ONE (11:56)
[2019-03-30] MEDS ORDERED: ONDANSETRON HCL/PF 4 MG/2 ML VIAL IV ONE (12:30)
--- NOTE | 2019-03-30 12:34 | NUR ---
MOVE SHEET AND CLINICALS SUBMITTED. CALLED FOR ICU BED.
--- NOTE | 2019-03-30 12:56 | NUR ---
BED ASSIGN 263 ICU
--- NOTE | 2019-03-30 13:02 | NUR ---
REPORT GIVEN TO YORDAN MEDELLIN FOR KOSTA.
--- NOTE | 2019-03-30 13:28 | NUR ---
CHOCO BENZ ELIZABETH, FROM [facility], AUTH# FOR IN PATIENT :[id number]
--- NOTE | 2019-03-30 13:30 | NUR ---
LEN DEY DNP AT BEDSIDE FOR EVAL.
--- NOTE | 2019-03-30 13:40 | NUR ---
ICU/RN: ADMITTING NOTE RECEIVED REPORT FROM YORDAN CARREON. PT TRANSFERRED TO ROOM 263 VIA GURNEY. PT ON ROOM AIR, NO DISTRESS NOTED, SINUS ON TELE. ALERT, AWAKE, ORIENTED, FOLLOWS COMMANDS. LEFT AC PIV, ORDERS FOR PICC LINE RECEIVED. SKIN INTACT. CONSENT FOR PICC LINE OBTAINED AND IN CHART. PT JAUNDICED. ON DIAPER DUE TO LACTULOSE. ALL NEEDS WILL BE ATTENDED TO, SAFETY MEASURES TAKEN, BED IN LOW POSITION, SIDE RAILS UP, CALL LIGHT WITHIN REACH. WILL CONTINUE CARE.
[2019-03-30] MEDS ORDERED: Z GUARD REMEDY 2 OZ OINT TP PRN (14:00)
[2019-03-30] MEDS ORDERED: MORPHINE SULFATE INJ 2 MG/ML DISP.SYRIN IV PRN (14:00)
[2019-03-30] MEDS ORDERED: POTASSIUM CHLORIDE 20 MEQ TAB.PRT.SR PO ONE (14:00)
[2019-03-30] MEDS ORDERED: hydrOXYzine 10 MG TABLET PO PRN (14:00)
[2019-03-30] MEDS ORDERED: ONDANSETRON HCL/PF 4 MG/2 ML VIAL IVP PRN (14:00)
[2019-03-30] MEDS ORDERED: FEE PK DOSING 1 MIN EA MC ONE (14:13)
[2019-03-30] MEDS ORDERED: NOREPINEPHRINE 8 MG in IV D5W 500 ML IV PRN (14:30)
[2019-03-30] MEDS: IV NS 0.9% 1,000 ML IV PRN (15:27)
[2019-03-30 15:50] LABS: THYROID STIMULATING HORMONE 2.129 uIU/mL (0.358-3.74)
[2019-03-30 16:36] LABS: BAND % (MANUAL) 7 % (0.0-5.0); LYMPHOCYTES % (MANUAL) 6 % (16-48); MONOCYTES % (MANUAL) 6 % (0-11.0); NEUTROPHILS % (MANUAL) 81 (42-76)
[2019-03-30 16:51] LABS: MAGNESIUM 1.5 mg/dL (1.8-2.4)
[2019-03-30] MEDS: PIPERACILLIN /TAZOBACTAM 3.375 G in IV D5W 100 ML IV SCH (17:41)
[2019-03-30] MEDS: LACTULOSE 10 G/15 ML UDC (PYXIS) PO SCH (17:41)
[2019-03-30] MEDS: buPROPion 75 MG TABLET PO SCH (18:53)
--- NOTE | 2019-03-30 19:19 | NUR ---
ICU/RN: ENDING NOTES,AM BEDSIDE REPORT ENDORSED TO NIGHT NURSE. PT AAOX3, ON ROOM AIR NO DISTRESS. PT RESTING COMFORTABLY IN BED. ALL NEEDS ATTENDED TO. LEFT UPPER ARM PICC LINE PATENT AND INTACT, IVF INFUSING ORDERED. ALL NEEDS ATTENDED TO, SAFETY MEASURES TAKEN, BED IN LOW POSITION, SIDE RAILS UP. CALL LIGHT WITHIN REACH.
--- NOTE | 2019-03-30 19:25 | NUR ---
ICU/PRINTED CIRCUIT DESIGNER INFECTIOSUS DISEASE CAME T0O SEE PT, ORDERED A TORRES CATH BECAUSE PT HAD VOICED THAT SHE HASN'T PEEED TODAY. TORRES CATH WAS PLACED AFTER PT WAS CLEANED FOR BM.
--- NOTE | 2019-03-30 20:20 | NUR ---
ICU/RUG CLEANER HAND STOOL SENT FOR C-DIFF, PT HAS HAD MANY LOSE BM.
[2019-03-30] MEDS ORDERED: PIPERACILLIN /TAZOBACTAM 3.375 G in IV D5W 50 ML IV SCH (21:00)
[2019-03-30] MEDS ORDERED: CELLULOSE,OXIDIZED 1 EACH EACH MC ONE (21:00)
--- NOTE | 2019-03-30 21:31 | NUR ---
ICU/PURIFICATION DIRECTOR PT'S NEW PICC LINE IS BLEEDING, THIS IS THE THIRD TIME DRESSING HAD REQUIRED TO BE CHANGED. MADE CHARGE NURSE AWARE OF THIS. ALSO OBTAINED ORDER FOR SURASEAL DRESSING TO HELP PREVENT ANY FURTHER BLEEDING. WILL MONITOR THIS NEW DRESSING FOR BLEEDING.
--- NOTE | 2019-03-30 22:44 | NUR ---
ICU/RESISTANCE WELDER PT HAD AN ECHO AT THE BEGINNING OF THE SHIFT, EJ SHOWED THAT IT WAS 70% AND PT HAD SEVER PULMONARY HTN. PRIMARY MD WAS NOTIFIED ABOUT THIS. NO NEW ORDERS WERE RECEIVED ABOUT THIS EXCEPT JUST TO LET DR HAGER KNOW ABOUT THIS.
[2019-03-30] MEDS: TEMAZEPAM 15 MG CAPSULE PO PRN (23:02)
[2019-03-30] MEDS: VANCOMYCIN 1 GM in IV D5W 250 ML IV SCH (23:03)
--- NOTE | 2019-03-30 23:24 | NUR ---
ICU/MANAGER INTEGRITY PT REQUESTED SOMETHING TO SLEEP, PT HAS PRN RESTORIL GIVEN FOR THIS. PT APPEARED TO SAY SOMETHING UNDER HER BREATH WHEN ASKED WHAT SHE SAID, SHE SAID "DON'T YELL AT ME." I ASKED WHAT A SECOND TIME, THEN PT LAUGHED AND SAID "JUST KIDDING." PT IS CURRENTLY GETTING LACTULOSE FOR HER CHRONIC LIVER CHORISIS. PT IS ON A LIVER TRANSPLANT LIST AT [facility]. WILL CONTINUE TO MONITOR PT'S MENTAL CONDITION.
[2019-03-31] VITALS (36 sets, daily range): BP systolic 80–105; BP diastolic 40–68
--- NOTE | 2019-03-31 00:39 | NUR ---
ICU/GLOVE CLEANER TROPONIN AT @2200 HAS INCREASED TO 0.[address] TYLER IS ON THE CASE WILL SEE PT THIS AM.
[2019-03-31] MEDS: PIPERACILLIN /TAZOBACTAM 3.375 G in IV D5W 100 ML IV SCH ×3 (01:27→17:55)
--- NOTE | 2019-03-31 03:00 | NUR ---
ICU/DIRECTOR TELEMETRY PT REFUSED TO BE CLEANED UP, SAID IT'S TOO COLD.
[2019-03-31 04:54] LABS: BASOPHILS % (AUTO) 0.2 % (0.0-2.0); EOSINOPHILS % (AUTO) 0.1 % (0.0-6.0); HEMATOCRIT 28 % (33-45); LYMPHOCYTES # (AUTO) 0.2 /CMM (0.8-4.8); LYMPHOCYTES % (AUTO) 4.2 % (20.0-44.0); MEAN CORPUSCULAR HGB CONC 36 g/dl (31.0-36.0); MEAN CORPUSCULAR VOLUME 113 fL (82-100); MONOCYTES % (AUTO) 18.7 % (2.0-12.0); NEUTROPHILS % (AUTO) 76.8 % (43.0-81.0); RED BLOOD CELL COUNT(AUTO) 2.45 MIL/uL (4.0-5.2); WHITE BLOOD COUNT (AUTO) 5.2 K/uL (4.3-11.0)
--- NOTE | 2019-03-31 05:08 | NUR ---
ICU/MIDDLE SCHOOL COMBINATION TEACHER AM LABS WERE DRAWN AWAIT FOR ANY ABNORMAL RESULTS.
[2019-03-31 05:19] LABS: CREATININE 1.5 mg/dL (0.6-1.3); MAGNESIUM 1.4 mg/dL (1.8-2.4); PHOSPHORUS 3.2 mg/dL (2.5-4.9); POTASSIUM 3.4 mmol/L (3.5-5.1)
[2019-03-31] MEDS: IV NS 0.9% 1,000 ML IV PRN ×2 (05:32→20:27)
[2019-03-31 06:04] LABS: PLATELET COUNT (AUTO) 14 /CMM (150-450)
[2019-03-31 06:19] LABS: LYMPHOCYTES % (MANUAL) 4 % (16-48); MONOCYTES % (MANUAL) 13 % (0-11.0); NEUTROPHILS % (MANUAL) 83 (42-76)
--- NOTE | 2019-03-31 06:42 | NUR ---
ICU/DESIGNER PLATELETS IS 14 FROM 24 YESTERDAY, ORDERS OBTAIN TO GIVE 1 UNIT PLAT. PT SIGNED CONSENT AND PLAT WAS ORDERED.
--- NOTE | 2019-03-31 08:01 | NUR ---
ICU/RN: INITIAL NOTES,AM RECEIVED BEDSIDE REPORT FROM NIGHT NURSE. PT ALERT, AWAKE, ORIENTED, FOLLOWS COMMANDS. ON ROOM AIR, NO DISTRESS NOTED. SINUS ON TELE. PT NOTED TO BE JAUNDICED. NO PAIN ASSESSED, WILL CONTINUE TO MONITOR. LEFT UPPER ARM PICC LINE PATENT AND INTACT, SOME BLEEDING NOTED OVERNIGHT. IVF INFUSING ORDERED. TORRES CATH IN PLACE DRAINING MINIMAL URINE, BLOODY. ALL NEEDS WILL BE ATTENDED TO, SAFETY MEASURES TAKEN, BED IN LOW POSITION, SIDE RAILS UP, CALL LIGHT WITHIN REACH. WILL CONTINUE CARE.
[2019-03-31] MEDS: POTASSIUM CHLORIDE 20 MEQ TAB.PRT.SR PO SCH ×4 (08:51→13:07)
[2019-03-31] MEDS: LACTULOSE 10 G/15 ML UDC (PYXIS) PO SCH ×2 (08:51→17:28)
[2019-03-31] MEDS: CITALOPRAM HYDROBROMIDE 20 MG TABLET PO SCH (08:51)
[2019-03-31] MEDS: SPIRONOLACTONE 25 MG TABLET PO SCH (08:52)
[2019-03-31] MEDS: buPROPion 75 MG TABLET PO SCH ×3 (08:53→17:29)
[2019-03-31] MEDS: PANTOPRAZOLE 40 MG TABLET.DR PO SCH (08:56)
[2019-03-31] MEDS ORDERED: POTASSIUM CHLORIDE 10 MEQ TABLET.SA PO SCH (09:00)
[2019-03-31] MEDS ORDERED: ALBUMIN 25% 25 GM in PREMIX 1 EA IV SCH ×2 (09:00→21:00)
[2019-03-31] MEDS ORDERED: ASPIRIN 81 MG TAB.CHEW PO SCH (09:00)
[2019-03-31] MEDS ORDERED: SPIRONOLACTONE 25 MG TABLET PO SCH (09:00)
[2019-03-31] MEDS: Magnesium 1GM/D5W 100ML PREMIX 100 ML IV SCH ×2 (09:47→10:48)
[2019-03-31] MEDS: VANCOMYCIN 1 GM in IV D5W 250 ML IV SCH (11:00)
[2019-03-31 14:21] LABS: CREATININE, URINE 60.5 MG/DL (30.0-125.0); URINE TOTAL PROTEIN 75.5 mg/dL (0-11.9)
[2019-03-31 14:42] LABS: APPEARANCE,URINE CLEAR (CLEAR); BILIRUBIN,URINE MODERATE (NEGATIVE); BLOOD, URINE LARGE Ery/uL (NEGATIVE); COLOR,URINE YELLOW (YELLOW); KETONES,URINE NEGATIVE (NEGATIVE); LEUKOCYTE ESTERASE ,URINE TRACE (NEGATIVE); NITRITE, URINE NEGATIVE (NEGATIVE); PROTEIN,URINE 30 mg/dl (NEGATIVE); UGLUCOSE NEGATIVE (NEGATIVE)
[2019-03-31 14:49] LABS: BACTERIA,URINE 1+ /HPF (None Seen); SQUAMOUS EPITHELIAL CELL,UR Few /HPF (None Seen); WBC,URINE 51-80 /HPF (0-3)
[2019-03-31 14:50] LABS: FINE GRANULAR CASTS,URINE Few /LPF (None Seen); HYALINE CASTS, URINE Few /LPF (None Seen)
--- NOTE | 2019-03-31 15:00 | NUR ---
ICU/RN: CALLED BLOOD BACK TO FOLLOW UP ON PLATELETS, STILL NOT READY. WILL FOLLOW UP.
[2019-03-31 15:22] LABS: EOSINOPHIL,URINE None Seen
--- NOTE | 2019-03-31 15:45 | NUR ---
ICU/RN: PT TRANSFERRED TO [facility]. BEDSIDE REPORT ENDORSED TO YORDAN ALCARAZ. ALL BELONGINGS AND MEDICATIONS TRANSFERRED WITH PT. PT AAOX4, ON ROOM AIR, NO DISTRESS NOTED. SINUS ON TELE. PT TRANSFERRED WITH ACLS GUIDELINES. PER MD PT IS TO RECEIVE ONE UNIT PLATELETS, STILL NOT READY WHEN BLOOD BANK WAS CALLED. ENDORSED TO KIERAN FARR TO FOLLOW UP AGAIN. CONSENT IN CHART. ALL NEEDS ATTENDED TO, SAFETY MEASURE TAKEN, BED IN LOW POSITION, SIDE RAILS UP. BED BATH GIVEN, LINENS CHANGED
--- NOTE | 2019-03-31 16:00 | NUR ---
Received patient from ICU. Report at bedside. Patient a/ox4 , on tele monitor SR HR 62, VS are stable and within base line. On room air breathing unlabored and even. IV fluids running as ordered. Patient adm. to room 325-1 , oriented to unit and call light placed within reach. Platelets needs to be transfused 1 unit per ICU nurse. Will follow up with LAB. Safety precautions in place. Needs attended. Will continue to monitor
--- NOTE | 2019-03-31 16:20 | NUR ---
LAB called if platelets are ready for picking tech. Per LAB there is no order for platelets. Called ICU nurse to double check and she was busy. Per ICU corporation secretary ; order for platelets hasn't placed and they will place it now
--- NOTE | 2019-03-31 19:00 | NUR ---
informatics specialist opening notes Received Pt from morning nurse. Pt is alert and oriented X4. Pt is resting in bed comfortably. Respiration is normal in room air. No SOB. No S/S of distress noted. Tele monitor showed SR HR at 68. CONSTANTINO piccline is clean, intact and patent. Root cath is intact, patent and draining yellow urine. Pt is still waiting for platelet transfusion. Will F/U with lab. Safety precautions is maintained. Bed at low position, brakes locked, side rails upX3 and call light is within reach. Will continue to monitor.
--- NOTE | 2019-03-31 19:48 | NUR ---
family member caretaker notes Called Lab and spoke with Dale regarding platelets transfusion. Dale said "Platelets is not here yet and still waiting from [place] and Dale stated she will call if the platelets is here. Will continue to monitor.
--- NOTE | 2019-03-31 22:01 | NUR ---
YORDAN medsursabino notes Platelet transfusion starts at 2201. Informed consent is done. Platelet 1 unit 326 ml is checked and Verify the platelets and cosigned with Renata Larkin LVN. Vital signed is taken. Will continue to monitor.
[2019-03-31] MEDS: TEMAZEPAM 15 MG CAPSULE PO PRN (22:14)
--- NOTE | 2019-03-31 22:14 | NUR ---
physiotherapy aide notes Pt is complaining of trouble sleeping and requesting med. Administered restoril 15 mg as ordered for sleeping per Pt's request. Will continue to monitor.
--- NOTE | 2019-03-31 23:19 | NUR ---
senior occupational therapist notes 1 unit of platelet 326 ml is transfused. VS is stable. Pt tolerated well. No SOB. Afebrile. No transfusion reaction noted. Will continue to monitor.
[2019-04-01] VITALS: BP 95/59
[2019-04-01 00:49] VITALS: BP 95/59
[2019-04-01] MEDS: PIPERACILLIN /TAZOBACTAM 3.375 G in IV D5W 100 ML IV SCH ×3 (01:18→17:59)
[2019-04-01 04:00] VITALS: BP 95/52
--- NOTE | 2019-04-01 06:45 | NUR ---
vocational training instructor notes Noted Pt's PICC line is bleeding. Reinforced the dressing. Will endorse to morning nurse.
--- NOTE | 2019-04-01 07:00 | NUR ---
box car bracer closing notes Pt is sleeping in bed comfortably. Pt is alert and orientedx4. Respiration is normal in room air. No SOB. No S/S of distress noted. Noted Picc line is bleeding. Reinforced the dressing. VS is stable. Tele monitor showed SR HR at 72. Routine meds were given as ordered. romero cath is intact and draining dark yellow urine. Skin care provided. Kept Pt clean, dry and comfortable. All needs met and attended. Safety precautions is maintained. Bed at low position, brakes locked, side rails upX3 and call light is within reach. Will endorse to morning nurse for KOSTA.
--- NOTE | 2019-04-01 07:30 | NUR ---
RN OPENING NOTES RECEIVED PATIENT IN STABLE CONDITION. A/OX2-3, ABLE TO MAKE NEEDS KNOWN. NOT IN ANY FORM OF DISTRESS. NO SOB.DENIED PAIN OR DISCOMFORT AT THIS TIME. IV ACCESS INTACT AND PATENT. KEPT PATIEN TSAFE AND COMFORTABLE. BED IN LOW/LOCKED POSITION. SIDERAILS UPX2, CALL LIGHT IN REACH. WILL CONT TO MONITOR ACCORDINGLY.
[2019-04-01 07:36] LABS: ALBUMIN 2.5 g/dL (3.4-5.0); CALCIUM, SERUM 7.9 mg/dL (8.5-10.1); CREATININE 1.2 mg/dL (0.6-1.3); PHOSPHORUS 2.2 mg/dL (2.5-4.9); POTASSIUM 3.3 mmol/L (3.5-5.1); TOTAL PROTEIN, SERUM 5.2 g/dL (6.4-8.2)
[2019-04-01 08:00] VITALS: BP 117/73
[2019-04-01 08:21] LABS: BILIRUBIN,TOTAL 15.6 mg/dL (0.2-1.0)
[2019-04-01] MEDS: CITALOPRAM HYDROBROMIDE 20 MG TABLET PO SCH (09:24)
[2019-04-01] MEDS: SPIRONOLACTONE 25 MG TABLET PO SCH (09:25)
[2019-04-01] MEDS: POTASSIUM CHLORIDE 20 MEQ TAB.PRT.SR PO SCH (09:26)
[2019-04-01] MEDS: PANTOPRAZOLE 40 MG TABLET.DR PO SCH (09:26)
[2019-04-01] MEDS: buPROPion 75 MG TABLET PO SCH ×3 (09:26→17:57)
[2019-04-01] MEDS: LACTULOSE 10 G/15 ML UDC (PYXIS) PO SCH (09:28)
[2019-04-01 09:46] LABS: MAGNESIUM 1.9 mg/dL (1.8-2.4)
[2019-04-01] MEDS ORDERED: NEUTRA PHOS 1 POWD.PACKET PO ONE (12:30)
[2019-04-01 16:00] VITALS: BP 101/63
--- NOTE | 2019-04-01 19:37 | NUR ---
RN CLOSING NOTES PATIENT IN STABLE CONDITION. ALL DUE MEDS GIVEN ORDERED. ASSISTED PATIENT WITH ADLS. KEPT PATIENT SKIN CLEAN AND DRY. BED IN LOW/LOCKED POSITION, SIDERAILS UPX2, CALL LIGHT IN REACH. ENDORSED ACCORDINGLY
--- NOTE | 2019-04-01 19:48 | NUR ---
MS/RN OPENING NOTES RECEIVED PATIENT IN BED, AWAKE, ALERT X3, ABLE TO VERBALIZE NEEDS, BELONGINGS WITHIN REACH, BED LOCKED, CALL LIGHTS WITHIN REACHED, RECEIVED ENDORSEMENT FROM AM RN FOR KOSTA, IV PICC LINE PATENT, REQUIRE TURNING AND REPOSITION , USES DIAPER, WILL MONITOR. ON ROOM AIR RESPIRATINS EVEN AND UNLABORED.WILL MONITOR.
[2019-04-01 20:00] VITALS: BP 100/68
[2019-04-01] MEDS ORDERED: MEROPENEM 500 MG in IV NS 0.9% 50 ML IV ONE (20:00)
[2019-04-01] MEDS: TEMAZEPAM 15 MG CAPSULE PO PRN (22:13)
[2019-04-02] MEDS ORDERED: MEROPENEM 500 MG in IV NS 0.9% 100 ML IV SCH (06:00)
--- NOTE | 2019-04-02 07:00 | NUR ---
MS/RN CLOSING NOTES ENDORSED TO AM RN FOR KOSTA.
[2019-04-02 07:14] LABS: BASOPHILS % (AUTO) 0.7 % (0.0-2.0); EOSINOPHILS % (AUTO) 1.4 % (0.0-6.0); HEMATOCRIT 27 % (33-45); HEMOGLOBIN 9.6 g/dL (11.5-14.8); LYMPHOCYTES # (AUTO) 0.4 /CMM (0.8-4.8); LYMPHOCYTES % (AUTO) 12.3 % (20.0-44.0); MEAN CORPUSCULAR HGB CONC 35 g/dl (31.0-36.0); MEAN CORPUSCULAR VOLUME 118 fL (82-100); MONOCYTES # (AUTO) 0.5 /CMM (0.1-1.30); MONOCYTES % (AUTO) 15.7 % (2.0-12.0); NEUTROPHILS # (AUTO) 2.2 /CMM (1.8-8.9); NEUTROPHILS % (AUTO) 69.9 % (43.0-81.0); RED BLOOD CELL COUNT(AUTO) 2.31 MIL/uL (4.0-5.2); WHITE BLOOD COUNT (AUTO) 3.2 K/uL (4.3-11.0)
[2019-04-02 07:27] LABS: PLATELET COUNT (AUTO) 27 /CMM (150-450)
--- NOTE | 2019-04-02 07:27 | NUR ---
MS/RN NOTE Received call from Foster from lab, platelet is 27. Will notify
[2019-04-02 07:36] LABS: CALCIUM, SERUM 8.3 mg/dL (8.5-10.1); CREATININE 0.9 mg/dL (0.6-1.3); PHOSPHORUS 2.8 mg/dL (2.5-4.9); POTASSIUM 3.4 mmol/L (3.5-5.1)
[2019-04-02 08:00] VITALS: BP 114/62
[2019-04-02] MEDS ORDERED: POTASSIUM CHLORIDE 20 MEQ TAB.PRT.SR PO SCH (08:00)
[2019-04-02] MEDS: SPIRONOLACTONE 25 MG TABLET PO SCH (08:28)
[2019-04-02] MEDS: PANTOPRAZOLE 40 MG TABLET.DR PO SCH (08:28)
[2019-04-02] MEDS: CITALOPRAM HYDROBROMIDE 20 MG TABLET PO SCH (08:28)
[2019-04-02] MEDS: buPROPion 75 MG TABLET PO SCH ×3 (08:29→17:48)
[2019-04-02 08:35] LABS: BAND % (MANUAL) 2 % (0.0-5.0); EOSINOPHILS % (MANUAL) 1 % (0-4); LYMPHOCYTES % (MANUAL) 13 % (16-48); MONOCYTES % (MANUAL) 11 % (0-11.0); NEUTROPHILS % (MANUAL) 73 (42-76)
[2019-04-02] MEDS: Magnesium 1GM/D5W 100ML PREMIX 100 ML IV SCH ×4 (08:38→13:15)
[2019-04-02] MEDS: POTASSIUM CHLORIDE 20 MEQ TAB.PRT.SR PO SCH (09:39)
[2019-04-02 16:00] VITALS: BP 107/66
--- NOTE | 2019-04-02 16:00 | NUR ---
MS/RN NOTE spoke with Annie FARR at [facility] transplant center to give update on patient.
[2019-04-02] MEDS: LEVOFLOXACIN (500MG) 500 MG TABLET PO SCH (17:48)
--- NOTE | 2019-04-02 18:45 | NUR ---
MS/RN CLOSING NOTE Patient is resting in bed, A.O x4, with periods of confusion, showing no signs of acute distress, saturating >95% on RA. PICC line dressing changed with Deshawn FARR due to site bleeding in the AM. SIte is still bleeding, endorsed to security shift manager to change dressing. All patient needs met, all due meds given. Bed is in lowest position, side rails x3 in upright position, call light is within reach and patient is aware of how to call for assistance when needed. Will endorse to security shift manager.
--- NOTE | 2019-04-02 19:25 | NUR ---
MS RN OPENING NOTES PATIENT AWAKE IN BED UPON ARRIVAL. A/OX4. PATIENT ABLE TO VERBALIZE NEEDS. ON ROOM AIR. NO S/S OF ACUTE RESPIRATORY DISTRESS AND NO COMPLAINTS OF PAIN AT THIS TIME. PATIENT'S SKIN IS JAUNDICED. PICC LINE PRESENT ON LEFT UPPER ARM, SCANT AMOUNT OF BLOOD PRESENT ON DRESSING. SAFETY MEASURES IN PLACE. BED LOCKED, ALARM ON, SIDE RAILS X2, CALL LIGHT WITHIN REACH. WILL CONTINUE TO MONITOR.
[2019-04-02 20:00] VITALS: BP 104/62
[2019-04-02 20:55] VITALS: BP 104/62
--- NOTE | 2019-04-02 21:30 | NUR ---
MS RN NOTES PICC LINE DRESSING CHANGED DUE TO BLEEDING. LINES INTACT, PATENT, AND FLUSHING WELL. WILL CONTINUE TO MONITOR.
[2019-04-03 06:00] VITALS: BP 119/65
[2019-04-03 06:52] LABS: CALCIUM, SERUM 7.9 mg/dL (8.5-10.1); CREATININE 0.9 mg/dL (0.6-1.3); POTASSIUM 3.8 mmol/L (3.5-5.1)
--- NOTE | 2019-04-03 06:56 | NUR ---
MS RN CLOSING NOTES PATIENT SLEEPING IN BED. A/OX4. ON ROOM AIR. NO C/O SOB OR PAIN AT THIS TIME. BLEEDING PRESENT ON LEFT UPPER ARM PICC LINE. DRESSING REINFORCED WITH GAUZE. WILL ENDORSE TO DAY SHIFT NURSE FOR DRESSING CHANGE AND PICC LINE NURSE ASSESSMENT. SAFETY MEASURES IN PLACE. BED LOCKED, SIDE RAILS X2, CALL LIGHT WITHIN REACH. WILL ENDORSE TO DAY SHIFT NURSE TO FOLLOW PLAN OF CARE.
--- NOTE | 2019-04-03 08:00 | NUR ---
MS/RN CLOSING NOTE Patient is resting in bed, A.O x4, with periods of confusion, showing no signs of acute distress, saturating >95% on RA. PICC line dressing changed last night, site is still bleeding. security shift manager RN Carlos notified nursing surface ship usw supervisor to ask if we can send a PICC line nurse to come and assess the site. Will follow up with RN surface ship usw supervisor. Patient has no complaints of pain at this time. Bed is in lowest position, side rails x3 in upright position, call light is within reach and patient is aware of how to call for assistance when needed. Will continue with plan of care. .
[2019-04-03 09:00] VITALS: BP 109/60
[2019-04-03] MEDS: SPIRONOLACTONE 25 MG TABLET PO SCH (09:13)
[2019-04-03] MEDS: POTASSIUM CHLORIDE 20 MEQ TAB.PRT.SR PO SCH (09:13)
[2019-04-03] MEDS: CITALOPRAM HYDROBROMIDE 20 MG TABLET PO SCH (09:13)
[2019-04-03] MEDS: buPROPion 75 MG TABLET PO SCH ×3 (09:14→17:21)
[2019-04-03] MEDS: PANTOPRAZOLE 40 MG TABLET.DR PO SCH (09:14)
[2019-04-03 11:36] LABS: BASOPHILS % (AUTO) 1.1 % (0.0-2.0); EOSINOPHILS % (AUTO) 1.9 % (0.0-6.0); HEMATOCRIT 27 % (33-45); HEMOGLOBIN 9.4 g/dL (11.5-14.8); LYMPHOCYTES # (AUTO) 0.4 /CMM (0.8-4.8); LYMPHOCYTES % (AUTO) 12.6 % (20.0-44.0); MEAN CORPUSCULAR HGB CONC 35 g/dl (31.0-36.0); MEAN CORPUSCULAR VOLUME 118 fL (82-100); MONOCYTES # (AUTO) 0.5 /CMM (0.1-1.30); MONOCYTES % (AUTO) 15.7 % (2.0-12.0); NEUTROPHILS # (AUTO) 2.2 /CMM (1.8-8.9); NEUTROPHILS % (AUTO) 68.7 % (43.0-81.0); RED BLOOD CELL COUNT(AUTO) 2.28 MIL/uL (4.0-5.2); WHITE BLOOD COUNT (AUTO) 3.1 K/uL (4.3-11.0)
[2019-04-03 12:05] LABS: PLATELET COUNT (AUTO) 21 /CMM (150-450)
[2019-04-03 12:09] LABS: BAND % (MANUAL) 8 % (0.0-5.0); EOSINOPHILS % (MANUAL) 4 % (0-4); LYMPHOCYTES % (MANUAL) 4 % (16-48); METAMYELOCYTES % 1 % (0-0); MONOCYTES % (MANUAL) 20 % (0-11.0); MYELOCYTES % 1 % (0-0); NEUTROPHILS % (MANUAL) 62 (42-76)
--- NOTE | 2019-04-03 12:09 | NUR ---
MS/RN NOTE Received call from lab, platelet level 21.
--- NOTE | 2019-04-03 14:00 | NUR ---
MS/RN NOTE Followed up with lab, platelets not delivered at this time.
[2019-04-03] MEDS ORDERED: Magnesium 1 GM/2 ML VIAL IV ONE (15:00)
[2019-04-03] MEDS ORDERED: Magnesium 1GM/D5W 100ML PREMIX PIGGYBACK IV ONE ×2 (15:30)
[2019-04-03] MEDS: Magnesium 1GM/D5W 100ML PREMIX 100 ML IV SCH ×3 (15:51→18:22)
[2019-04-03 16:00] VITALS: BP 103/66
--- NOTE | 2019-04-03 16:00 | NUR ---
MS/RN note spoke with lab, platelets still not delivered. They will call when ready .
[2019-04-03] MEDS: LEVOFLOXACIN (500MG) 500 MG TABLET PO SCH (17:21)
--- NOTE | 2019-04-03 18:53 | NUR ---
MS/RN CLOSING NOTE Patient is resting in bed, A.O x4, with periods of confusion, showing no signs of acute distress, saturating >95% on RA. - PICC line dressing changed by Dr. Alessandro Braun. Patient has order for platelet transfusion, however, it has not been delivered to lab yet. - Spoke with Annie from [facility] transplant center to give update on patient; still awaiting for insurance and waiting for possible bed at [facility]. Possible DC to home tomorrow. - Patient was able to ambulate with walker and stand-by assistance about 200 feet today. Patient has no complaints of pain at this time. Bed is in lowest position, side rails x3 in upright position, call light is within reach and patient is aware of how to call for assistance when needed. Will endorse to shift commander.
--- NOTE | 2019-04-03 19:30 | NUR ---
MS RN OPENING NOTES PATIENT AWAKE IN BED. A/OX4. ON ROOM AIR. NO C/O SOB OR PAIN AT THIS TIME. PICC LINE PRESENT ON LEFT UPPER ARM, WRAPPED WITH STACY BANDAGE, INTACT & PATENT. SAFETY MEASURES IN PLACE. BED LOCKED, SIDE RAILS X2, CALL LIGHT WITHIN REACH. WILL CONTINUE TO MONITOR.
[2019-04-03 20:00] VITALS: BP 108/65
[2019-04-03] MEDS: TEMAZEPAM 15 MG CAPSULE PO PRN (23:22)
[2019-04-04] VITALS (7 sets, daily range): BP systolic 100–117; BP diastolic 55–76
--- NOTE | 2019-04-04 00:26 | NUR ---
MS RN NOTES 1 BAG OF PLATELET INFUSION STARTED. CONSENT SIGNED BY PATIENT AND PLACED IN CHART. TRANSFUSION VERIFIED WITH CO-RN, KRISTEN, AT THE BEDSIDE. VITAL SIGNS PRIOR TO INFUSION - BP: 117/58 HR: 80 RR: 18 SPO2: 98 TEMP: 97.9. WILL CONTINUE TO MONITOR PATIENT AT THE BEDSIDE.
--- NOTE | 2019-04-04 00:41 | NUR ---
MS RN NOTES PATIENT TOLERATING TRANSFUSION WELL; DENIES ANY SIDE EFFECTS/REACTIONS. VITAL SIGNS - BP: 113/73 HR: 84 RR: 18 SPO2: 97 TEMP: 98.4. WILL CONTINUE TO MONITOR.
--- NOTE | 2019-04-04 01:06 | NUR ---
MS RN NOTES PLATELET TRANSFUSION COMPLETED. NO SIDE EFFECT/REACTIONS OCCURRED. VITAL SIGNS - BP: 108/58 HR: 83 RR: 18 SPO2: 97 TEMP: 98.4
--- NOTE | 2019-04-04 07:29 | NUR ---
MS RN CLOSING NOTES PATIENT SLEEPING IN BED. A/OX4. ON ROOM AIR. NO C/O SOB OR PAIN AT THIS TIME. PICC LINE PRESENT ON LEFT UPPER ARM, WRAPPED WITH STACY BANDAGE, INTACT & PATENT. SAFETY MEASURES IN PLACE. BED LOCKED, SIDE RAILS X2, CALL LIGHT WITHIN REACH. WILL ENDORSE TO DAY SHIFT NURSE TO FOLLOW PLAN OF CARE.
--- NOTE | 2019-04-04 07:43 | NUR ---
ms rn opening notes Patient received on room air, no sob noted, a/o x4. L UA picc line. Possible D/C. Patient denies pain at this time. Bed at the lowest setting, call light within reach, side rails up x2.
[2019-04-04 07:56] LABS: CALCIUM, SERUM 8.7 mg/dL (8.5-10.1); CREATININE 0.7 mg/dL (0.6-1.3); POTASSIUM 3.7 mmol/L (3.5-5.1)
[2019-04-04] MEDS ORDERED: LEVO500T75 PO (08:11)
[2019-04-04] MEDS: LEVOFLOXACIN (500MG) 500 MG TABLET PO SCH (08:58)
[2019-04-04] MEDS: SPIRONOLACTONE 25 MG TABLET PO SCH (08:58)
[2019-04-04] MEDS: PANTOPRAZOLE 40 MG TABLET.DR PO SCH (08:58)
[2019-04-04] MEDS: POTASSIUM CHLORIDE 20 MEQ TAB.PRT.SR PO SCH (08:58)
[2019-04-04] MEDS: CITALOPRAM HYDROBROMIDE 20 MG TABLET PO SCH (08:58)
[2019-04-04] MEDS: buPROPion 75 MG TABLET PO SCH ×3 (09:02→16:25)
--- NOTE | 2019-04-04 12:30 | NUR ---
WOUND CARE CONSULT: PT REFUSED SKIN ASSESSMENT AT THIS TIME. DISCUSSED SKIN PROTECTION WITH NURSING STAFF. WILL SEE PRN. CURRENT HAMIDA SCORE IS 18. PT NOTED TO HAVE JAUNDICED SKIN.
--- NOTE | 2019-04-04 18:21 | NUR ---
rn closing notes Patient remains on room air, no sob noted, a/o x4 at this time. Denies pain at this time. Jaundice all over the place. Cardiac diet with L UA PICC line, dressing changed by jordyn wiggins, 04/03. Awaiting for DC to either [facility] or [facility] tomorrow. Bed at the lowest setting, call light within reach, side rails up x2. Will give report to NOC RN for [facility] bedside.
--- NOTE | 2019-04-04 19:40 | NUR ---
MSRN SLEEPS ON/OFF, DISCHARGE CANCEL NEEDS SNF, FOR FOLLOW UP IN AM.
--- NOTE | 2019-04-04 20:00 | NUR ---
MSRN FULLY AWAKE DENIES DISCOMFORTS FOR NOW, FORGETFUL.. PICC LINE LEFT UPPER ARM PATENT. REMINDED TO CALL SRTAFF FOR ANY ASSISTANCE OR DISCOMFORTS. ALL NEEDS ATTENDED. UNDERSTANDS PLAN OF CARE AND MEDICATION REGIMEN OF THIS TIME. HFR, CLOSELY WATCHED.
--- NOTE | 2019-04-04 22:35 | NUR ---
MSRN REQUESTED FOR MEDICINE FOR SLEEP, RESTORIL ADMINISTERED ORDERED.
[2019-04-04] MEDS: TEMAZEPAM 15 MG CAPSULE PO PRN (22:41)
--- NOTE | 2019-04-05 02:53 | NUR ---
MSRN SLEEPING APPEARS COMFORTABLE. CLOSELY WATCHED.
--- NOTE | 2019-04-05 07:00 | NUR ---
MSRN REMAINS UNCHANGED, BLOOD DRAWN FROM PICC LINE. ALL NEEDS ATTENDED.
[2019-04-05 07:28] LABS: CALCIUM, SERUM 8.1 mg/dL (8.5-10.1); CREATININE 0.7 mg/dL (0.6-1.3); POTASSIUM 3.9 mmol/L (3.5-5.1)
[2019-04-05 08:00] VITALS: BP 123/71
--- NOTE | 2019-04-05 08:00 | NUR ---
MS RN NOTES PATIENT IN BED RESTING NO SOB OR ACUTE DISTRESS NOTED. PATIENT ALERT, ORIENTED X3. PICC LINE INTACT PATENT. PATIENT APPEARS JAUNDICE. BED IN LOW LOCKED POSITION CALL LIGHT WITHIN REACH. WILL CONTINUE TO MONITOR.
[2019-04-05] MEDS: SPIRONOLACTONE 25 MG TABLET PO SCH (08:37)
[2019-04-05] MEDS: PANTOPRAZOLE 40 MG TABLET.DR PO SCH (08:37)
[2019-04-05] MEDS: CITALOPRAM HYDROBROMIDE 20 MG TABLET PO SCH (08:37)
[2019-04-05] MEDS: POTASSIUM CHLORIDE 20 MEQ TAB.PRT.SR PO SCH (08:37)
[2019-04-05] MEDS: buPROPion 75 MG TABLET PO SCH ×3 (10:24→17:10)
--- NOTE | 2019-04-05 10:24 | NUR ---
WOUND CARE CONSULT: PT PRESENTS WITH JAUNDICED SKIN AND RASH TO BUTTOCKS, PERINEUM, INNER THIGHS, PRESENT ON ADMISSION. PERIANAL IRRITATION IMPROVING WITH Z GUARD. RECOMMENDATIONS MADE FOR SKIN CARE AND PROTECTION. DISCUSSED WITH NURSING STAFF. WILL SEE PRN. HAYES IN AGREEMENT WITH PLAN OF CARE. Addendum: 04/05/19 at 1026 by ZACKARY MCKOY WNDNU Amended: Links added.
--- NOTE | 2019-04-05 14:00 | NUR ---
MS RN NOTES PATIENT STATES SHE FEELS WEAK AND MORE CONFUSED THEN USUAL. VS WNL. BP 127/76 PULSE 73 TEMP 98.3 RESPIRATION 18, PULSE OX 98%. FERNY MADE AWARE ORDERS FOR 500ML BOLUS. NOTED AND CARRIED OUT.
[2019-04-05] MEDS ORDERED: IV NS 0.9% 500 ML BAG IV ONE (15:00)
[2019-04-05 16:00] VITALS: BP 97/65
--- NOTE | 2019-04-05 16:22 | NUR ---
MS RN NOTES CALL RECEIVED FROM CASE MANAGEMENT PATIENT WAS ACCEPTED TO [facility]. FERNY MADE AWARE ORDERS RECEIVED TO DISCHARGE PATIENT.
[2019-04-05] MEDS ORDERED: CLOTRIMAZOLE 1% 15 GM TUBE TP SCH (17:00)
[2019-04-05] MEDS: LEVOFLOXACIN (500MG) 500 MG TABLET PO SCH (17:10)
--- NOTE | 2019-04-05 17:39 | NUR ---
MS RN NOTES PATIENTS PICC LINE REMOVED, PATIENT TOLERATED PROCEDURE WELL.
--- NOTE | 2019-04-05 17:43 | NUR ---
MS RN NOTES CALLED [facility] REPORT GIVEN TO HEBER FARR [facility].
--- NOTE | 2019-04-05 17:44 | NUR ---
MS RN NOTES PATIENT AND PATIENTS FAMILY EDUCATED ON DISCHARGE INSTRUCTIONS. VERBALIZED UNDERSTANDING. PATIENT REFUSED DISCHARGE PICTURES. ALL BELONGINGS ACCOUNTED FOR. BELONGINGS LIST SIGNED.
--- NOTE | 2019-04-05 19:14 | NUR ---
MS RN NOTES PATIENT DISCHARGED TO [facility] . PATIENT IN STABLE CONDITION. MD AWARE OF ALL ABNORMAL TESTS. DISCHARGE TEACHING REINFORCED. VERBALIZED UNDERSTANDING. PATIENT TRANSFERRED VIA AMBULANCE WITH EMT.
== END 2019-04-05 19:00 | DRG 720 ==
LOC: ER 11:14 → ICU 13:45 → TELE 03-31 16:21 → MED 04-01 08:57
PROVIDERS: ADMIT Nurse Practitioner Acute Care; ATTEND Nurse Practitioner Acute Care
PROC: 02HV33Z Insertion of Infusion Device into Superior Vena Cava, Percutaneous Approach (ICD-10-PCS; principal; 2019-03-30)
PROC: B548ZZA Ultrasonography of Superior Vena Cava, Guidance (ICD-10-PCS; principal; 2019-03-30)
PROC: 30233R1 Transfusion of Nonautologous Platelets into Peripheral Vein, Percutaneous Approach (ICD-10-PCS; 2019-03-31)
DX: A41.9 Sepsis, unspecified organism (principal); N17.0 Acute kidney failure with tubular necrosis; I21.A1 Myocardial infarction type 2; R65.21 Severe sepsis with septic shock; D61.818 Other pancytopenia; Z76.82 Awaiting organ transplant status; E86.0 Dehydration; I48.91 Unspecified atrial fibrillation; D69.59 Other secondary thrombocytopenia; E83.42 Hypomagnesemia; E87.1 Hypo-osmolality and hyponatremia; E87.2 Acidosis; I25.2 Old myocardial infarction; K70.30 Alcoholic cirrhosis of liver without ascites; N39.0 Urinary tract infection, site not specified; B96.20 Unspecified Escherichia coli [E. coli] as the cause of diseases classified elsewhere; E86.1 Hypovolemia; E87.6 Hypokalemia; F32.9 Major depressive disorder, single episode, unspecified; I48.92 Unspecified atrial flutter; K76.6 Portal hypertension; K52.9 Noninfective gastroenteritis and colitis, unspecified; K31.89 Other diseases of stomach and duodenum; K44.9 Diaphragmatic hernia without obstruction or gangrene; I51.7 Cardiomegaly; I85.00 Esophageal varices without bleeding; K82.8 Other specified diseases of gallbladder; Z91.19 Patient's noncompliance with other medical treatment and regimen; D68.9 Coagulation defect, unspecified; K80.20 Calculus of gallbladder without cholecystitis without obstruction; R31.9 Hematuria, unspecified; K70.40 Alcoholic hepatic failure without coma
CPT/HCPCS: 36415; 36569; 71045-TC; 76705-TC; 80048-TC; 80053-TC; 80061-TC; 80076-TC; 81000-TC; 82140-TC; 82570-TC; 82728-TC; 82962-TC; 83540-TC; 83605-TC; 83735-TC; 84100-TC; 84155-TC; 84300-TC; 84439-TC; 84443-TC; 84484-TC; 85025-TC; 85730-TC; 86850-TC; 87040-TC; 87045-TC; 87081-TC; 87086-TC; 87186-TC; 93307-TC; 97116-TC; 97530-TC; A4216; A6403; C1751; G0378; J2185; J2270; J2405; J2543; J3370; J3475; J7030; J7040; J7050; J7060; P9016-BL; P9034-BL; P9047